=== PATIENT | female | born 1955 | race Caucasian/White ===

== ENCOUNTER 2022-10-31 11:57 | Day surgery (SDC) | payer MEDICARE, OTHER ==
[2022-10-30 08:39] VITALS: BMI 30.7
[2022-10-31] MEDS ORDERED: Oxymetazoline HCl 0.05% (30 ML BOT) ONE ×2 (13:07→15:42)
[2022-10-31 13:17] LABS: Hemoglobin 13.6 g/dL (12.0-16.0)
[2022-10-31] MEDS ORDERED: Acetaminophen 500 MG TAB ONE (13:46)
[2022-10-31 13:50] LABS: Anion Gap 10 mmol/L (10-20); BUN (Urea Nitrogen) 6 mg/dL (9.8-20.1); Calc. Creatinine Clearance 96 mL/min (70-130); Calcium 9.3 mg/dL (7.8-10.44); Carbon Dioxide 29 mmol/L (23-31); Chloride 102 mmol/L (98-107); Estimated GFR 91; Glucose 86 mg/dL (80-115); Potassium 3.7 mmol/L (3.5-5.1); Sodium 137 mmol/L (136-145)
[2022-10-31] MEDS ORDERED: EPINEPHrine 1 MG/ML AMP ONE (15:42)
[2022-10-31] MEDS ORDERED: Lidocaine 1% (PF) 30 ML VIAL ONE (15:42)
[2022-10-31] MEDS ORDERED: fentaNYL PF 100 MCG/2 ML SYRINGE ONE (16:21)
[2022-10-31] MEDS ORDERED: Rocuronium Bromide 10 MG/ML (10ML VIAL) ONE (16:35)
[2022-10-31] MEDS ORDERED: NEOSTIGMINE 3 MG/3 ML SYR 3 MG/3 ML SYRINGE ONE (16:35)
[2022-10-31] MEDS ORDERED: Dexamethasone 20 MG/5 ML VIAL ONE (16:35)
[2022-10-31] MEDS ORDERED: Lidocaine 1% PF 5 ML VIAL ONE (16:35)
[2022-10-31] MEDS ORDERED: Ondansetron PF 4 MG/2 ML Vial ONE (16:35)
[2022-10-31] MEDS ORDERED: PROPOFOL 200 MG/20 ML VIAL ONE (16:35)
[2022-10-31] MEDS ORDERED: GLYCOPYRROLATE/PF 0.2 MG/ML VIAL ONE (16:35)
[2022-10-31] MEDS ORDERED: Triamcinolone 40 MG/ML VIAL ONE (16:53)
[2022-10-31] MEDS ORDERED: SUGAMMADEX SODIUM 200 MG/2 ML VIAL ONE (17:17)
[2022-10-31] MEDS ORDERED: fentaNYL 50 mcg/mL 1 mL Vial ONE ×2 (17:26→17:36)
[2022-10-31] MEDS ORDERED: oxyCODONE 5 MG TAB ONE (18:00)
== END 2022-10-31 18:40 | disposition home or self-care (01) ==
LOC: SDC 11:57
PROVIDERS: ATTEND Specialist
PROC: 09SL8ZZ Reposition Nasal Turbinate, Via Natural or Artificial Opening Endoscopic (ICD-10-PCS; principal; 2022-10-31)
PROC: 099T8ZZ Drainage of Left Frontal Sinus, Via Natural or Artificial Opening Endoscopic (ICD-10-PCS; 2022-10-31)
PROC: 099S8ZZ Drainage of Right Frontal Sinus, Via Natural or Artificial Opening Endoscopic (ICD-10-PCS; 2022-10-31)
PROC: 099X8ZZ Drainage of Left Sphenoid Sinus, Via Natural or Artificial Opening Endoscopic (ICD-10-PCS; 2022-10-31)
PROC: 099W8ZZ Drainage of Right Sphenoid Sinus, Via Natural or Artificial Opening Endoscopic (ICD-10-PCS; 2022-10-31)
PROC: 09BR8ZZ Excision of Left Maxillary Sinus, Via Natural or Artificial Opening Endoscopic (ICD-10-PCS; 2022-10-31)
PROC: 09BQ8ZZ Excision of Right Maxillary Sinus, Via Natural or Artificial Opening Endoscopic (ICD-10-PCS; 2022-10-31)
PROC: 09TV8ZZ Resection of Left Ethmoid Sinus, Via Natural or Artificial Opening Endoscopic (ICD-10-PCS; 2022-10-31)
PROC: 09TU8ZZ Resection of Right Ethmoid Sinus, Via Natural or Artificial Opening Endoscopic (ICD-10-PCS; 2022-10-31)
DX: J32.4 Chronic pansinusitis (principal); J30.89 Other allergic rhinitis; B48.8 Other specified mycoses; J34.3 Hypertrophy of nasal turbinates; I10 Essential (primary) hypertension; I25.2 Old myocardial infarction; I25.10 Atherosclerotic heart disease of native coronary artery without angina pectoris; G25.81 Restless legs syndrome; E78.00 Pure hypercholesterolemia, unspecified; Z87.891 Personal history of nicotine dependence; Z79.85 Long-term (current) use of injectable non-insulin antidiabetic drugs; Z79.890 Hormone replacement therapy; Z79.899 Other long term (current) drug therapy; Z91.013 Allergy to seafood
CPT/HCPCS: 30130; 31257; 31267; 31276; 80048; 85014; 85018; 93005; J3010; 93010; J0171; J1100; J2001; J2405; J2704; J3301; J3490